=== PATIENT | female | born 1990 | race Caucasian/White ===

== ENCOUNTER 2018-07-24 08:13 | Emergency (ER) | payer OTHER ==
[~2018-07-24] VITALS: Ht 154.9 cm; Wt 66.7 kg
[2018-07-24] MEDS ORDERED: HYDROCODONE-AP1 EAC6 PO (09:27)
[2018-07-24 09:52] VITALS: BP 126/84
== END 2018-07-24 09:53 | disposition home or self-care (01) ==
LOC: M.ERS 08:13
DX: S86.811A Strain of other muscle(s) and tendon(s) at lower leg level, right leg, initial encounter (principal); S16.1XXA Strain of muscle, fascia and tendon at neck level, initial encounter; W22.8XXA Striking against or struck by other objects, initial encounter; Y93.89 Activity, other specified; Y92.89 Other specified places as the place of occurrence of the external cause; Y99.8 Other external cause status

== ENCOUNTER 2018-09-16 06:49 | Emergency (ER) | payer OTHER ==
[~2018-09-16] VITALS: Ht 154.9 cm; Wt 68.0 kg
[~2018-09-16 06:49] MED LIST: HYDROCODONE-AP1 EAC6 PO
[2018-09-16 06:53] VITALS: BP 130/86
[2018-09-16] MEDS ORDERED: AMOXICILLIN 50500 MG PO (07:51)
[2018-09-16] MEDS ORDERED: ULTRAM 50MG TAB50 MG PO (07:51)
[2018-09-16] MEDS ORDERED: NORCO 5-325 TA1 EACH PO (07:58)
== END 2018-09-16 07:59 | disposition home or self-care (01) ==
LOC: M.ERS 06:49
DX: K02.9 Dental caries, unspecified (principal)